=== PATIENT | female | born 1980 | race American Indian/Alaskan Native ===

== ENCOUNTER 2017-10-09 13:52 | Emergency (ER) | payer MEDICAID ==
[2017-10-09 14:06] VITALS: BP 137/90
--- NOTE | 2017-10-09 14:30 | EDM.PDOC ---
ED HPI GENERAL MEDICAL PROBLEM - General Chief Complaint: Abdominal Pain Stated Complaint: SHARP PAINS IN STOMACH Time Seen by Provider: 10/09/17 14:25 Source of Information: Reports: Patient History Limitations: Reports: No Limitations - History of Present Illness INITIAL COMMENTS - FREE TEXT/NARRATIVE: This 37 yo female patient reports to the ED with lower abdominal pain and bloody discharge from her vagina. The patient reports she recently found out she was . This is the patient's 4th with 3 healthy children. The patient reports she had a large meal yesterday and went home. The patient reports she got sick last night and vomited. During the night, the patient reports that she noticed some clots coming from her vagina. The patient reports she is no longer bleeding, but is having some lower abdominal cramping and aching. The patient reports she was supposed to have a menstrual cycle on July 13, but did not (last normal menstrual cycle was in the end of May). Onset: Today Duration: Constant Location: Reports: Abdomen (right lower abdominal cramping with vaginal bleeding ) Quality: Reports: Dull Severity: Moderate Improves with: Reports: None Worsens with: Reports: None Associated Symptoms: Reports: No Other Symptoms Lower Abdominal Pain Score (Numeric/FACES): 8 - Related Data Allergies Allergy/AdvReac Type Severity Reaction Status Date / Time metoclopramide HCl Allergy Tremors Verified 10/09/17 14:11 [From Reglan] Sulfa (Sulfonamide Allergy Cannot Verified 10/09/17 14:11 Antibiotics) Remember tramadol Allergy Rash Verified 10/09/17 14:11 hydrocortisone cream Allergy Rash Uncoded 10/09/17 14:11 Home Meds: Home Meds Pnv No.122/Iron/Folic Acid [ Multi Tablet] 1 tab PO DAILY 10/09/17 [ History] Past Medical History - Past Health History Medical/Surgical History: Denies Medical/Surgical History HEENT History: Reports: None Cardiovascular History: Reports: None Respiratory History: Reports: None Gastrointestinal History: Reports: None Genitourinary History: Reports: None 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: , Other (See Below) Other OB/BYN History: hx Musculoskeletal History: Reports: None Neurological History: Reports: None Psychiatric History: Reports: None Endocrine/Metabolic History: Reports: None Hematologic History: Reports: None Immunologic History: Reports: None Oncologic (Cancer) History: Reports: None Dermatologic History: Reports: None - Infectious Disease History Infectious Disease History: Reports: Chicken Pox - Past Surgical History Head Surgeries/Procedures: Reports: None GI Surgical History: Reports: Cholecystectomy Female Surgical History: Reports: None Endocrine Surgical History: Reports: None Musculoskeletal Surgical History: Reports: None Social & Family History - Family History Family Medical History: Noncontributory - Tobacco Use Smoking Status *Q: Current Some Day Smoker Years of Tobacco use: 10 Packs/Tins Daily: 0.3 Used Tobacco, but Quit: No Month Tobacco Last Used: january Second Hand Smoke Exposure: Yes - Caffeine Use Caffeine Use: Reports: Tea, Other - Alcohol Use Days Per Week of Alcohol Use: 0 - Recreational Drug Use Recreational Drug Use: Yes Drug Use in Last 12 Months: Yes Recreational Drug Type: Reports: Marijuana/Hashish Recreational Drug Use Frequency: Socially Recreational Drug Last Use: december - Living Situation & Occupation Living situation: Reports: with Significant Other Occupation: Employed ED ROS GENERAL - Review of Systems Review Of Systems: ROS reveals no pertinent complaints other than HPI. ED EXAM, GI/ABD - Physical Exam Exam: See Below Exam Limited By: No Limitations General Appearance: Alert, WD/WN, Moderate Distress Eyes: Bilateral: Normal Appearance, EOMI Ears: Normal External Exam, Normal Canal, Hearing Grossly Normal, Normal TMs Nose: Normal Inspection, Normal Mucosa, No Blood Throat/Mouth: Normal Inspection, Normal Lips, Normal Teeth, Normal Gums, Normal Oropharynx, Normal Voice, No Airway Compromise Head: Atraumatic, Normocephalic Neck: Normal Inspection, Supple, Non-Tender, Full Range of Motion Respiratory/Chest: No Respiratory Distress, Lungs Clear, Normal Breath Sounds, No Accessory Muscle Use, Chest Non-Tender Cardiovascular: Normal Peripheral Pulses, Regular Rate, Rhythm, No Edema, No Gallop, No JVD, No Murmur, No Rub GI/Abdominal Exam: Normal Bowel Sounds, Soft, Tender (to palpation of the suprapubic area) (Female) Exam: Deferred Rectal (Female) Exam: Deferred Back Exam: Normal Inspection, Full Range of Motion, NT Extremities: Normal Inspection, Normal Range of Motion, Non-Tender, Normal Capillary Refill, No Pedal Edema Neurological: Alert, Oriented, CN II-XII Intact, Normal Cognition, Normal Gait, Normal Reflexes, No Motor/Sensory Deficits Psychiatric: Normal Affect, Normal Mood Skin Exam: Warm, Dry, Intact, Normal Color, No Rash Lymphatic: No Adenopathy Course - Vital Signs Last Recorded V/S: Last Vital Signs Temp 36.1 C 10/09/17 14:04 Pulse 88 10/09/17 14:04 Resp 16 10/09/17 14:04 BP 137/90 10/09/17 14:04 Pulse Ox 100 10/09/17 14:04 - Orders/Labs/Meds Orders: Active Orders 24 hr Category Date Time Status OB Ltd 1 or More Fetus [US] Urgent Exams 10/09/17 15:19 Taken OB Transvaginal [US] Urgent Exams 10/09/17 15:19 Taken Labs: Laboratory Tests 10/09/17 10/09/17 10/09/17 Range/Units 14:15 14:15 14:15 WBC (5.0-10.0) 10^3/uL RBC (4.2-5.4) 10^6/uL Hgb (12.0-16.0) g/dL Hct (37.0-47.0) % MCV (80-100) fL MCH (27.0-34.0) pg MCHC (33.0-35.0) g/dL Plt Count (150-450) 10^3/uL Neut % (Auto) (42.2-75.2) % Lymph % (Auto) (20.5-50.1) % Mccone % (Auto) (2-8) % Eos % (Auto) (1.0-3.0) % Baso % (Auto) (0.0-1.0) % Sodium (135-145) mmol/L Potassium (3.6-5.0) mmol/L Chloride (101-111) mmol/L Carbon Dioxide (21.0-31.0) mmol/L Anion Gap BUN (7-18) mg/dL Creatinine (0.6-1.3) mg/dL Est Cr Clr Drug Dosing mL/min Estimated GFR (MDRD) BUN/Creatinine Ratio Glucose (74-105) mg/dL Calcium (8.4-10.2) mg/dl Total Bilirubin (0.2-1.0) mg/dL AST (10-42) IU/L ALT (10-60) IU/L Alkaline Phosphatase (42-121) IU/L Total Protein (6.7-8.2) g/dl Albumin (3.2-5.5) g/dl Globulin Albumin/Globulin Ratio HCG, Quant (0-25) mIU/ml Beta HCG, Quant mIU/ml Urine Color Yellow (YELLOW) Urine Appearance Clear (CLEAR) Urine pH 7.0 (5.0-9.0) Ur Specific [place] 1.015 (1.005-1.030) Urine Protein Negative (NEGATIVE) Urine Glucose (UA) Negative (NEGATIVE) Urine Ketones Negative (NEGATIVE) Urine Occult Blood Negative (NEGATIVE) Urine Nitrite Negative (NEGATIVE) Urine Bilirubin Negative (NEGATIVE) Urine Urobilinogen 0.2 (0.2-1.0) mg/dL Ur Leukocyte Esterase Negative (NEGATIVE) Urine RBC 0-5 /HPF Urine WBC 0-5 (0-5/HPF) /HPF Ur Epithelial Cells Moderate H /HPF Urine Bacteria Few (0-FEW/HPF) /HPF Urine HCG, Qual Positive Urine Opiates Screen Negative (NEGATIVE) Ur Oxycodone Screen Negative (NEGATIVE) Urine Methadone Screen Negative (NEGATIVE) Ur Barbiturates Screen Negative (NEGATIVE) U Tricyclic Antidepress Negative (NEGATIVE) Ur Phencyclidine Scrn Negative (NEGATIVE) Ur Amphetamine Screen Negative (NEGATIVE) U Methamphetamines Scrn Negative (NEGATIVE) Urine MDMA Screen Negative (NEGATIVE) U Benzodiazepines Scrn Negative (NEGATIVE) Urine Cocaine Screen Negative (NEGATIVE) U Marijuana (THC) Screen Positive H (NEGATIVE) 10/09/17 10/09/17 10/09/17 Range/Units 14:23 14:23 14:23 WBC 6.5 (5.0-10.0) 10^3/uL RBC 4.29 (4.2-5.4) 10^6/uL Hgb 13.2 (12.0-16.0) g/dL Hct 39.6 (37.0-47.0) % MCV 92.3 (80-100) fL MCH 30.8 (27.0-34.0) pg MCHC 33.3 (33.0-35.0) g/dL Plt Count 329 D (150-450) 10^3/uL Neut % (Auto) 65.6 (42.2-75.2) % Lymph % (Auto) 23.6 (20.5-50.1) % Mccone % (Auto) 9.7 H (2-8) % Eos % (Auto) 0.8 L (1.0-3.0) % Baso % (Auto) 0.3 (0.0-1.0) % Sodium 138 (135-145) mmol/L Potassium 3.4 L (3.6-5.0) mmol/L Chloride 104 (101-111) mmol/L Carbon Dioxide 26.0 (21.0-31.0) mmol/L Anion Gap 11.4 BUN 8 (7-18) mg/dL Creatinine 0.6 (0.6-1.3) mg/dL Est Cr Clr Drug Dosing 117.76 mL/min Estimated GFR (MDRD) > 60 BUN/Creatinine Ratio 13.33 Glucose 92 (74-105) mg/dL Calcium 8.8 (8.4-10.2) mg/dl Total Bilirubin 0.6 (0.2-1.0) mg/dL AST 17 (10-42) IU/L ALT 20 (10-60) IU/L Alkaline Phosphatase 68 (42-121) IU/L Total Protein 7.0 (6.7-8.2) g/dl Albumin 4.3 (3.2-5.5) g/dl Globulin 2.7 Albumin/Globulin Ratio 1.59 HCG, Quant > 1371 H (0-25) mIU/ml Beta HCG, Quant 7244 mIU/ml Urine Color (YELLOW) Urine Appearance (CLEAR) Urine pH (5.0-9.0) Ur Specific [place] (1.005-1.030) Urine Protein (NEGATIVE) Urine Glucose (UA) (NEGATIVE) Urine Ketones (NEGATIVE) Urine Occult Blood (NEGATIVE) Urine Nitrite (NEGATIVE) Urine Bilirubin (NEGATIVE) Urine Urobilinogen (0.2-1.0) mg/dL Ur Leukocyte Esterase (NEGATIVE) Urine RBC /HPF Urine WBC (0-5/HPF) /HPF Ur Epithelial Cells /HPF Urine Bacteria (0-FEW/HPF) /HPF Urine HCG, Qual Urine Opiates Screen (NEGATIVE) Ur Oxycodone Screen (NEGATIVE) Urine Methadone Screen (NEGATIVE) Ur Barbiturates Screen (NEGATIVE) U Tricyclic Antidepress (NEGATIVE) Ur Phencyclidine Scrn (NEGATIVE) Ur Amphetamine Screen (NEGATIVE) U Methamphetamines Scrn (NEGATIVE) Urine MDMA Screen (NEGATIVE) U Benzodiazepines Scrn (NEGATIVE) Urine Cocaine Screen (NEGATIVE) U Marijuana (THC) Screen (NEGATIVE) Departure - Departure Time of Disposition: 16:47 Disposition: Home, Self-Care 01 Condition: Fair Clinical Impression: Intrauterine - Discharge Information Instructions: First Trimester of Forms: ED Department Discharge Care Plan Goals: The patient was advised of the examination, lab and ultrasound results during the visit. The patient was encouraged to continue to monitor for any additional changes. If the patient has any additional symptoms or concerns, the patient should follow-up with her primary care facility or return to the emergency department. - My Orders Last 24 Hours: My Active Orders 10/09/17 15:19 OB Ltd 1 or More Fetus [US] Urgent OB Transvaginal [US] Urgent - Assessment/Plan Last 24 Hours: My Active Orders 10/09/17 15:19 OB Ltd 1 or More Fetus [US] Urgent OB Transvaginal [US] Urgent
[2017-10-09 14:54] LABS: CHLORIDE,CL 104 mmol/L (101-111); SODIUM,NA 138 mmol/L (135-145)
== END 2017-10-09 16:53 | disposition home or self-care (01) ==
LOC: DL.ED 13:52
DX: O99.89 Other specified diseases and conditions complicating pregnancy, childbirth and the puerperium (principal); R10.32 Left lower quadrant pain; O99.330 Smoking (tobacco) complicating pregnancy, unspecified trimester; Z88.2 Allergy status to sulfonamides; Z88.5 Allergy status to narcotic agent; Z88.8 Allergy status to other drugs, medicaments and biological substances
CPT/HCPCS: 36415; 76815; 76817; 80053; 80305; 81001; 81025; 84702; 85025; 99283; 99284

== ENCOUNTER 2017-10-20 22:56 | Emergency (ER) | payer SELFPAY ==
[2017-10-20] MEDS ORDERED: Sodium Chloride 0.9% 1,000 ML IV ONE (23:42)
[2017-10-20] MEDS ORDERED: Ondansetron 4 MG/2 ML SDV IV ONE (23:42)
--- NOTE | 2017-10-20 23:49 | EDM.PDOC ---
ED HPI GENERAL MEDICAL PROBLEM - General Chief Complaint: Headache Stated Complaint: HEADACHE, VOMITING Time Seen by Provider: 10/20/17 23:40 Source of Information: Reports: Patient History Limitations: Reports: No Limitations - History of Present Illness INITIAL COMMENTS - FREE TEXT/NARRATIVE: This 37 yo female patient reports to the ED with nausea/vomiting, a headache and lower abdominal pain. The patient reports she has been nauseated throughout her entire , but has not gotten into her primary care facility for the nausea. The patient reports her headache started this morning. The patient reports she attempted to take Tylenol, but has vomited it up each time. The patient was seen in the ED on 10/09/17 for abdominal pain and vaginal bleeding. US revealed a normal intrauterine . 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 Left Lower Abdomen Pain Score (Numeric/FACES): 8 Headache Pain Score (Numeric/FACES): 9 - Related Data Allergies Allergy/AdvReac Type Severity Reaction Status Date / Time metoclopramide HCl Allergy Tremors Verified 10/09/17 14:11 [From Reglan] Sulfa (Sulfonamide Allergy Cannot Verified 10/09/17 14:11 Antibiotics) Remember tramadol Allergy Rash Verified 10/09/17 14:11 hydrocortisone cream Allergy Rash Uncoded 10/09/17 14:11 Home Meds: Home Meds Pnv No.122/Iron/Folic Acid [ Multi Tablet] 1 tab PO DAILY 10/09/17 [ History] Past Medical History - Past Health History Medical/Surgical History: Denies Medical/Surgical History HEENT History: Reports: None Cardiovascular History: Reports: None Respiratory History: Reports: None Gastrointestinal History: Reports: None Genitourinary History: Reports: None 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: , Other (See Below) Other OB/BYN History: hx Musculoskeletal History: Reports: None Neurological History: Reports: None Psychiatric History: Reports: None Endocrine/Metabolic History: Reports: None Hematologic History: Reports: None Immunologic History: Reports: None Oncologic (Cancer) History: Reports: None Dermatologic History: Reports: None - Infectious Disease History Infectious Disease History: Reports: Chicken Pox - Past Surgical History Head Surgeries/Procedures: Reports: None GI Surgical History: Reports: Cholecystectomy Female Surgical History: Reports: None Endocrine Surgical History: Reports: None Musculoskeletal Surgical History: Reports: None Social & Family History - Family History Family Medical History: Noncontributory - Tobacco Use Smoking Status *Q: Current Some Day Smoker Years of Tobacco use: 2 Packs/Tins Daily: 0.5 Used Tobacco, but Quit: No Month Tobacco Last Used: january Second Hand Smoke Exposure: Yes - Caffeine Use Caffeine Use: Reports: Coffee, Tea - Alcohol Use Days Per Week of Alcohol Use: 0 - Recreational Drug Use Recreational Drug Use: Yes Drug Use in Last 12 Months: Yes Recreational Drug Type: Reports: Marijuana/Hashish Recreational Drug Use Frequency: Not Used In Over 3 Months Recreational Drug Last Use: december - Living Situation & Occupation Living situation: Reports: with Significant Other Occupation: Employed ED ROS GENERAL - Review of Systems Review Of Systems: ROS reveals no pertinent complaints other than HPI. - Physical Exam Exam: See Below Exam Limited By: No Limitations General Appearance: Alert, WD/WN, Moderate Distress Eye Exam: Bilateral Eye: EOMI, Normal Inspection, PERRL Ears: Normal External Exam, Normal Canal, Hearing Grossly Normal, Normal TMs Nose: Normal Inspection, Normal Mucosa, No Blood Throat/Mouth: Normal Inspection, Normal Lips, Normal Teeth, Normal Gums, Normal Oropharynx, Normal Voice, No Airway Compromise Head Exam: Atraumatic, Normocephalic Neck: Normal Inspection, Supple, Non-Tender, Full Range of Motion Respiratory/Chest: No Respiratory Distress, Lungs Clear, Normal Breath Sounds, No Accessory Muscle Use, Chest Non-Tender Cardiovascular: Normal Peripheral Pulses, Regular Rate, Rhythm, No Edema, No Gallop, No JVD, No Murmur, No Rub GI/Abdominal: Normal Bowel Sounds, Soft, Non-Tender, No Organomegaly, No Distention, No Abnormal Bruit, No Mass (Female) Exam: Deferred Rectal (Female) Exam: Deferred Neuro Exam (Abbreviated): Alert, Oriented, CN II-XII Intact, Normal Cognition, Normal Gait, Normal Reflexes, No Motor/Sensory Deficits Back Exam: Normal Inspection, Full Range of Motion, NT Extremities: Normal Inspection, Normal Range of Motion, Non-Tender, No Pedal Edema, Normal Capillary Refill Psychiatric: Normal Affect, Normal Mood Skin Exam: Warm, Dry, Intact, Normal Color, No Rash Course - Vital Signs Last Recorded V/S: Last Vital Signs Temp 36.8 C 10/20/17 23:11 Pulse 80 10/20/17 23:11 Resp 16 10/20/17 23:11 BP 142/97 H 10/20/17 23:11 Pulse Ox 100 10/20/17 23:11 - Orders/Labs/Meds Orders: Active Orders 24 hr Category Date Time Status DRUG SCREEN URINE BIORAD [URCHEM] Stat Lab 10/20/17 23:44 Uncollected UA W/MICROSCOPIC [URIN] Stat Lab 10/20/17 23:44 Uncollected Labs: Laboratory Tests 10/20/17 10/20/17 10/20/17 Range/Units 23:48 23:48 23:48 WBC 8.5 (5.0-10.0) 10^3/uL RBC 3.80 L (4.2-5.4) 10^6/uL Hgb 11.7 L D (12.0-16.0) g/dL Hct 35.0 L (37.0-47.0) % MCV 92.1 (80-100) fL MCH 30.8 (27.0-34.0) pg MCHC 33.4 (33.0-35.0) g/dL Plt Count 255 (150-450) 10^3/uL Neut % (Auto) 60.9 (42.2-75.2) % Lymph % (Auto) 28.8 (20.5-50.1) % Baker % (Auto) 9.3 H (2-8) % Eos % (Auto) 0.8 L (1.0-3.0) % Baso % (Auto) 0.2 (0.0-1.0) % Sodium 137 (135-145) mmol/L Potassium 3.5 L (3.6-5.0) mmol/L Chloride 105 (101-111) mmol/L Carbon Dioxide 21.0 (21.0-31.0) mmol/L Anion Gap 14.5 BUN 10 (7-18) mg/dL Creatinine 0.5 L (0.6-1.3) mg/dL Est Cr Clr Drug Dosing TNP Estimated GFR (MDRD) > 60 BUN/Creatinine Ratio 20.00 Glucose 93 (74-105) mg/dL Calcium 8.4 (8.4-10.2) mg/dl Total Bilirubin 0.3 (0.2-1.0) mg/dL AST 21 (10-42) IU/L ALT 19 (10-60) IU/L Alkaline Phosphatase 58 (42-121) IU/L Total Protein 6.1 L (6.7-8.2) g/dl Albumin 3.6 (3.2-5.5) g/dl Globulin 2.5 Albumin/Globulin Ratio 1.44 HCG, Quant > 1371 H (0-25) mIU/ml Beta HCG, Quant 01555 mIU/ml Meds: Medications Discontinued Medications Generic Name Dose Route Start Last Admin Trade Name Jonelle PRN Reason Stop Dose Admin Acetaminophen 650 mg 10/21/17 00:31 10/21/17 00:46 Tylenol PO 10/21/17 00:32 650 mg NOW ONE Administration Sodium Chloride 1,000 mls @ 999 mls/hr 10/20/17 23:42 10/20/17 23:54 Normal Saline IV 10/21/17 00:42 999 mls/hr .BOLUS ONE Administration Ondansetron HCl 4 mg 10/20/17 23:42 10/20/17 23:54 Zofran IV 10/20/17 23:43 4 mg ONETIME ONE Administration Departure - Departure Time of Disposition: 00:57 Disposition: Home, Self-Care 01 Condition: Fair Clinical Impression: Headache Qualifiers: Headache type: tension-type Headache chronicity pattern: acute headache Intractability: intractable Qualified Code(s): G44.201 - Tension-type headache, unspecified, intractable Nausea & vomiting Qualifiers: Vomiting type: unspecified Vomiting Intractability: non-intractable Qualified Code(s): R11.2 - Nausea with vomiting, unspecified - Discharge Information Instructions: Tension Headache, [id number], Nausea, Adult, [id number] Forms: ED Department Discharge Care Plan Goals: The patient was advised of the examination and lab results during the visit. The patient was given a liter of IV fluid, IV Zofran and an oral dose of Tylenol while in the ED. The patient was encouraged to follow-up with her primary care facility for continued evaluation and further management. The patient was given a script for Zofran (4 mg) #20 to take 1 by mouth every 6 hours as needed for nausea. If the patient has any additional symptoms or concerns, the patient should follow-up with her primary care facility or return to the emergency department. - My Orders Last 24 Hours: My Active Orders 10/20/17 23:44 DRUG SCREEN URINE BIORAD [URCHEM] Stat UA W/MICROSCOPIC [URIN] Stat - Assessment/Plan Last 24 Hours: My Active Orders 10/20/17 23:44 DRUG SCREEN URINE BIORAD [URCHEM] Stat UA W/MICROSCOPIC [URIN] Stat
[2017-10-21 00:18] LABS: CHLORIDE,CL 105 mmol/L (101-111); SODIUM,NA 137 mmol/L (135-145)
[2017-10-21] MEDS ORDERED: Acetaminophen 325 MG Tab PO ONE (00:31)
[2017-10-21 01:10] VITALS: BP 142/91
== END 2017-10-21 01:12 | disposition home or self-care (01) ==
LOC: DL.ED 22:56
DX: O99.351 Diseases of the nervous system complicating pregnancy, first trimester (principal); G44.201 Tension-type headache, unspecified, intractable; R11.2 Nausea with vomiting, unspecified; O99.331 Smoking (tobacco) complicating pregnancy, first trimester; F17.210 Nicotine dependence, cigarettes, uncomplicated; Z88.2 Allergy status to sulfonamides; Z88.5 Allergy status to narcotic agent; Z88.8 Allergy status to other drugs, medicaments and biological substances
CPT/HCPCS: 36415; 80053; 80305; 81001; 84702; 85025; 96361; 96374; 99284; A9270; J2405; J7030; 99283

== ENCOUNTER 2017-10-26 18:27 | Emergency (ER) | payer MEDICAID ==
[2017-10-26 18:42] VITALS: BP 146/113
--- NOTE | 2017-10-26 19:59 | EDM.PDOC ---
ED HPI GENERAL MEDICAL PROBLEM - General Chief Complaint: Lower Extremity Injury/Pain Stated Complaint: LEFT KNEE INJURY, 3 MONTHS PG, [id number] Time Seen by Provider: 10/26/17 19:25 Source of Information: Reports: Patient, RN, RN Notes Reviewed History Limitations: Reports: No Limitations - History of Present Illness INITIAL COMMENTS - FREE TEXT/NARRATIVE: Pt presents to the ER with c/o left leg pain. She states she slipped on some ice behind her apartment about 4:30pm. She states she fell on the left knee, and states the pain is more above the knee. She rates the pain 9/10. She states she is 3 months . 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 Left Knee Pain Score (Numeric/FACES): 6 - Related Data Allergies Allergy/AdvReac Type Severity Reaction Status Date / Time metoclopramide HCl Allergy Tremors Verified 10/26/17 18:42 [From Reglan] Sulfa (Sulfonamide Allergy Cannot Verified 10/26/17 18:42 Antibiotics) Remember tramadol Allergy Rash Verified 10/26/17 18:42 hydrocortisone cream Allergy Rash Uncoded 10/26/17 18:42 Home Meds: Home Meds Pnv No.122/Iron/Folic Acid [ Multi Tablet] 1 tab PO DAILY 10/09/17 [ History] Past Medical History - Past Health History Medical/Surgical History: Denies Medical/Surgical History HEENT History: Reports: None Cardiovascular History: Reports: None Respiratory History: Reports: None Gastrointestinal History: Reports: None Genitourinary History: Reports: None 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: , 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 (See Below) Other OB/BYN History: hx Musculoskeletal History: Reports: None Neurological History: Reports: None Psychiatric History: Reports: None Endocrine/Metabolic History: Reports: None Hematologic History: Reports: None Immunologic History: Reports: None Oncologic (Cancer) History: Reports: None Dermatologic History: Reports: None - Infectious Disease History Infectious Disease History: Reports: Chicken Pox - Past Surgical History Head Surgeries/Procedures: Reports: None GI Surgical History: Reports: Cholecystectomy Female Surgical History: Reports: None Endocrine Surgical History: Reports: None Musculoskeletal Surgical History: Reports: None Social & Family History - Family History Family Medical History: Noncontributory - Tobacco Use Smoking Status *Q: Current Every Day Smoker Years of Tobacco use: 2 Packs/Tins Daily: 2 Used Tobacco, but Quit: No Month Tobacco Last Used: january Second Hand Smoke Exposure: Yes - Caffeine Use Caffeine Use: Reports: Soda - Alcohol Use Days Per Week of Alcohol Use: 0 - Recreational Drug Use Recreational Drug Use: Yes Drug Use in Last 12 Months: Yes Recreational Drug Type: Reports: Marijuana/Hashish Recreational Drug Use Frequency: Rarely Recreational Drug Last Use: december - Living Situation & Occupation Living situation: Reports: with Significant Other Occupation: Employed Review of Systems - Review of Systems Review Of Systems: ROS reveals no pertinent complaints other than HPI. ED EXAM, GENERAL - Physical Exam Exam: See Below Exam Limited By: No Limitations General Appearance: Alert, WD/WN, No Apparent Distress Eye Exam: Bilateral Eye: EOMI, Normal Inspection Ears: Normal External Exam, Hearing Grossly Normal Nose: Normal Inspection Throat/Mouth: Normal Inspection, Normal Voice, No Airway Compromise Head: Atraumatic, Normocephalic Neck: Normal Inspection, Supple, Non-Tender, Full Range of Motion Respiratory/Chest: No Respiratory Distress, Lungs Clear, Normal Breath Sounds, No Accessory Muscle Use, Chest Non-Tender Cardiovascular: Normal Peripheral Pulses, Regular Rate, Rhythm, No Edema, No Gallop, No JVD, No Murmur, No Rub Peripheral Pulses: 2+: Radial (L), Radial (R), Dorsalis Pedis (L), Dorsalis Pedis (R) GI/Abdominal: Normal Bowel Sounds, Soft, Non-Tender, No Organomegaly, No Distention, No Abnormal Bruit, No Mass (Female) Exam: Deferred Rectal (Female) Exam: Deferred Back Exam: Normal Inspection, Full Range of Motion, NT Extremities: Normal Inspection, Non-Tender, No Pedal Edema, Normal Capillary Refill, Joint Swelling (left knee), Limited Range of Motion (left knee) Neurological: Alert, Oriented, CN II-XII Intact, Normal Cognition, Normal Gait, Normal Reflexes, No Motor/Sensory Deficits Psychiatric: Normal Affect, Normal Mood Skin Exam: Warm, Dry, Intact, Normal Color, No Rash Lymphatic: No Adenopathy Course - Vital Signs Last Recorded V/S: Last Vital Signs Temp 98.2 F 10/26/17 18:33 Pulse 101 H 10/26/17 18:33 Resp 21 H 10/26/17 18:33 BP 146/113 H 10/26/17 18:33 Pulse Ox 100 10/26/17 18:33 - Radiology Interpretation Free Text/Narrative:: Left knee xray: No acute findings See rad report Departure - Departure Time of Disposition: 20:32 Disposition: Home, Self-Care 01 Condition: Fair Clinical Impression: Contusion of knee - Discharge Information Instructions: Contusion, [id number], Knee Immobilizer, [id number] Forms: ED Department Discharge Additional Instructions: Use Knee immobilizer until pain is improved. May use Tylenol for pain Rest, ice the area as tolerated. Elevate as able. Follow up with your primary care facility if no improvement.
== END 2017-10-26 20:43 | disposition home or self-care (01) ==
LOC: DL.ED 18:27
DX: O9A.211 Injury, poisoning and certain other consequences of external causes complicating pregnancy, first trimester (principal); S80.02XA Contusion of left knee, initial encounter; O99.331 Smoking (tobacco) complicating pregnancy, first trimester; F17.210 Nicotine dependence, cigarettes, uncomplicated; Z88.2 Allergy status to sulfonamides; Z88.8 Allergy status to other drugs, medicaments and biological substances; Z88.5 Allergy status to narcotic agent; W00.2XXA Other fall from one level to another due to ice and snow, initial encounter
CPT/HCPCS: 73562-LT; 99283; 99284

== ENCOUNTER 2017-11-06 11:37 | Emergency (ER) | payer SELFPAY ==
[2017-11-06 11:44] VITALS: BP 143/99
--- NOTE | 2017-11-06 12:01 | EDM.PDOC ---
ED HPI GENERAL MEDICAL PROBLEM - General Chief Complaint: ENT Problem Stated Complaint: SEVERE TOOTH PAIN, [id number] Time Seen by Provider: 11/06/17 12:00 Source of Information: Reports: Patient, Old Records, RN, RN Notes Reviewed History Limitations: Reports: No Limitations - History of Present Illness INITIAL COMMENTS - FREE TEXT/NARRATIVE: Pt states she is approx. 9 weeks , and has no concerns with her , but has had several days of worsening Rt upper tooth pain at the molar region. Today pt noted that her gums are swelling on the upper Rt molar and she feels she is developing a dental abscess. Also pt c/o a painful red swollen abscess on the Rt hip. She report a small "ball" under the skin at that location for a year or more, and once some foul smelling greasy white material came out of it. Three days ago it began to get red and painful. Denies fever or chills. Onset: Gradual Duration: Constant, Getting Worse Location: Reports: Lower Extremity, Right (Rt hip), Other (mouth) Quality: Reports: Ache, Throbbing Severity: Severe Improves with: Reports: None Worsens with: Reports: None Associated Symptoms: Reports: No Other Symptoms Right Upper Gums Pain Score (Numeric/FACES): 10 - Related Data Allergies Allergy/AdvReac Type Severity Reaction Status Date / Time metoclopramide HCl Allergy Tremors Verified 10/26/17 18:42 [From Reglan] Sulfa (Sulfonamide Allergy Cannot Verified 10/26/17 18:42 Antibiotics) Remember tramadol Allergy Rash Verified 10/26/17 18:42 hydrocortisone cream Allergy Rash Uncoded 10/26/17 18:42 Home Meds: Home Meds Pnv No.122/Iron/Folic Acid [ Multi Tablet] 1 tab PO DAILY 10/09/17 [ History] Labetalol HCl [Labetalol] 1 tab PO DAILY 11/06/17 [History] Past Medical History - Past Health History Medical/Surgical History: Denies Medical/Surgical History HEENT History: Reports: None Cardiovascular History: Reports: None Respiratory History: Reports: None Gastrointestinal History: Reports: None Genitourinary History: Reports: None [employer] History: Reports: , 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 11/06/2017 states 9 weeks Musculoskeletal History: Reports: None Neurological History: Reports: None Psychiatric History: Reports: None Endocrine/Metabolic History: Reports: None Hematologic History: Reports: None Immunologic History: Reports: None Oncologic (Cancer) History: Reports: None Dermatologic History: Reports: None - Infectious Disease History Infectious Disease History: Reports: Chicken Pox - Past Surgical History Head Surgeries/Procedures: Reports: None GI Surgical History: Reports: Cholecystectomy Female Surgical History: Reports: None Endocrine Surgical History: Reports: None Musculoskeletal Surgical History: Reports: None Social & Family History - Family History Family Medical History: Noncontributory - Tobacco Use Smoking Status *Q: Current Every Day Smoker Years of Tobacco use: 2 Packs/Tins Daily: 0.2 Used Tobacco, but Quit: No Month Tobacco Last Used: january Second Hand Smoke Exposure: Yes - Caffeine Use Caffeine Use: Reports: Soda - Alcohol Use Days Per Week of Alcohol Use: 0 - Recreational Drug Use Recreational Drug Use: Yes Drug Use in Last 12 Months: Yes Recreational Drug Type: Reports: Marijuana/Hashish Recreational Drug Use Frequency: Rarely Recreational Drug Last Use: december - Living Situation & Occupation Living situation: Reports: with Significant Other Occupation: Employed ED ROS ENT - Review of Systems Review Of Systems: ROS reveals no pertinent complaints other than HPI. ED EXAM, ENT - Physical Exam Exam: See Below Exam Limited By: No Limitations General Appearance: Alert, WD/WN, No Apparent Distress Eye Exam: Bilateral Eye: Normal Inspection Ears: Normal External Exam, Normal Canal, Hearing Grossly Normal, Normal TMs Nose: Normal Inspection Mouth/Throat: Normal Lips, Normal Oropharynx, Dental Abcess (Rt maxillary molar region), Dental Pain, Dental Tenderness, Gum Swelling Head: Atraumatic, Normocephalic Neck: Normal Inspection Respiratory/Chest: No Respiratory Distress, Lungs Clear Cardiovascular: Regular Rate, Rhythm Extremities: Normal Range of Motion, Normal Capillary Refill, Increased Warmth ( Rt latertal hip with 3cm diameter swollen acutely tender, erythematous skin abscess, no drainage) Neurological: Alert, Oriented, CN II-XII Intact, Normal Cognition, Normal Gait, Normal Reflexes, No Motor/Sensory Deficits Psychiatric: Normal Affect, Normal Mood Lymphatic: No Adenopathy ED I&D PROCEDURES - I&D Site: Rt lateral hip Skin prep: Chlorhexidine (Hibiciens), Saline Local anesthesia - Lidocaine (Xylocaine): 1% Plain Local Anesthetic Volume: Other (10cc) Area Incised With: 11 Blade Drainage: Purulent, Moderate Amount, Other (sebaceous material and cyst sac) Probed to Break Up Loculations: Yes Packed With: 1/4 in. Iodoform Sterile Dressinx4(s) Complications: No Course - Vital Signs Last Recorded V/S: Last Vital Signs Temp 36.1 C 11/06/17 11:43 Pulse 79 11/06/17 11:43 Resp 20 11/06/17 11:43 BP 143/99 H 11/06/17 11:43 Pulse Ox 100 11/06/17 11:43 - Orders/Labs/Meds Orders: Active Orders 24 hr Category Date Time Status Bupivacaine 0.5% [Sensorcaine-MPF 0.5%] Med 11/06/17 12:53 Once 10 ml INJECT ONETIME ONE Meds: Medications Discontinued Medications Generic Name Dose Route Start Last Admin Trade Name Freq PRN Reason Stop Dose Admin Acetaminophen 650 mg 11/06/17 12:08 11/06/17 12:14 Tylenol PO 11/06/17 12:09 650 mg NOW ONE Administration Cephalexin 500 mg 11/06/17 12:07 11/06/17 12:13 Keflex PO 11/06/17 12:08 500 mg ONETIME ONE Administration Clindamycin HCl 300 mg 11/06/17 12:08 11/06/17 12:13 Cleocin PO 11/06/17 12:09 300 mg ONETIME ONE Administration Lidocaine HCl 30 ml 11/06/17 12:07 11/06/17 12:13 Xylocaine-Mpf 1% INJECT 11/06/17 12:08 30 ml ONETIME ONE Administration Lidocaine HCl 15 ml 11/06/17 12:07 11/06/17 12:13 Xylocaine 2% Viscous PO 11/06/17 12:08 15 ml ONETIME ONE Administration - Re-Assessments/Exams Free Text/Narrative Re-Assessment/Exam: 11/06/17 13:03 Dental block: Marcaine 0.5% 4mls regional dental block to rt. maxillary quadrant. Departure - Departure Time of Disposition: 13:04 Disposition: Home, Self-Care 01 Condition: Good Clinical Impression: Dental abscess, Toothache, Epidermal inclusion cyst, Infected sebaceous cyst - Discharge Information Instructions: Dental Abscess, [id number], Incision and Drainage, Care After Forms: ED Department Discharge Additional Instructions: Rx: Cephalexin 500mg Rx: Clindamycin 300mg Follow up with dentist at first available appointment. Follow up in clinic for recheck of skin abscess next week. - My Orders Last 24 Hours: My Active Orders 11/06/17 12:53 Bupivacaine 0.5% [Sensorcaine-MPF 0.5%] 10 ml INJECT ONETIME ONE - Assessment/Plan Last 24 Hours: My Active Orders 11/06/17 12:53 Bupivacaine 0.5% [Sensorcaine-MPF 0.5%] 10 ml INJECT ONETIME ONE
[2017-11-06] MEDS ORDERED: Lidocaine 1% 30 ML SDV INJECT ONE (12:07)
[2017-11-06] MEDS ORDERED: Lidocaine 2% Viscous Solution 15 ML Cup PO ONE (12:07)
[2017-11-06] MEDS ORDERED: Cephalexin 500 MG Cap PO ONE (12:07)
[2017-11-06] MEDS ORDERED: Acetaminophen 325 MG Tab PO ONE (12:08)
[2017-11-06] MEDS ORDERED: Clindamycin HCl 150 MG Cap PO ONE (12:08)
[2017-11-06] MEDS ORDERED: Bupivacaine 0.5% 10 ML SDV INJECT ONE (12:53)
== END 2017-11-06 13:36 | disposition home or self-care (01) ==
LOC: DL.ED 11:37
DX: O99.611 Diseases of the digestive system complicating pregnancy, first trimester (principal); K04.7 Periapical abscess without sinus; O99.711 Diseases of the skin and subcutaneous tissue complicating pregnancy, first trimester; L72.3 Sebaceous cyst; O99.331 Smoking (tobacco) complicating pregnancy, first trimester; F17.210 Nicotine dependence, cigarettes, uncomplicated; Z79.899 Other long term (current) drug therapy; Z88.5 Allergy status to narcotic agent; Z88.2 Allergy status to sulfonamides; Z88.8 Allergy status to other drugs, medicaments and biological substances; Z3A.09 9 weeks gestation of pregnancy
CPT/HCPCS: 10061; 64400; 87070; 99283; A9270; 10060

== ENCOUNTER 2017-11-30 07:09 | Emergency (ER) | payer SELFPAY ==
[2017-11-30] MEDS ORDERED: Ondansetron 4 MG/2 ML SDV IV ONE (07:11)
[2017-11-30] MEDS ORDERED: Sodium Chloride 0.9% 1,000 ML IV ONE (07:11)
[2017-11-30] MEDS ORDERED: Pantoprazole 40 MG Vial IVPUSH ONE (07:11)
[2017-11-30 07:48] VITALS: BP 140/82
[2017-11-30 07:49] LABS: ACETAMINOPHEN < 10
[2017-11-30 07:51] LABS: CHLORIDE,CL 106 mmol/L (101-111); SODIUM,NA 137 mmol/L (135-145)
--- NOTE | 2017-11-30 07:51 | EDM.PDOC ---
ED HPI GENERAL MEDICAL PROBLEM - General Stated Complaint: [id number] THROWING UP BLOOD Time Seen by Provider: 11/30/17 07:40 Source of Information: Reports: Patient History Limitations: Reports: No Limitations - History of Present Illness INITIAL COMMENTS - FREE TEXT/NARRATIVE: This 37 yo female patient reports to the ED due to throwing up blood. The patient reports she is approximately 14-15 weeks into her current . The patient reports the nausea and vomiting started at about 0400 this morning with the last episode involving throwing up a "mouth full of blood". The patient reports she has not been nauseated through this and has not had nausea with the previous 4 pregnancies. The patient reports she is scheduled for her 1st appointment on December 22 with Tammy Bird. The patient denies any fevers or chills. Onset: Today Onset Date: 11/30/17 Onset Time: 04:00 Duration: Waxing/Waning Location: Reports: Abdomen (lower abdominal pain ) Quality: Reports: Ache, Sharp Severity: Moderate Improves with: Reports: None Worsens with: Reports: None Context: Reports: Other Associated Symptoms: Reports: Nausea/Vomiting Left Lower Abdominal Pain Score (Numeric/FACES): 6 - Related Data Allergies Allergy/AdvReac Type Severity Reaction Status Date / Time metoclopramide HCl Allergy Tremors Verified 11/30/17 07:26 [From Reglan] Sulfa (Sulfonamide Allergy Cannot Verified 11/30/17 07:26 Antibiotics) Remember tramadol Allergy Rash Verified 11/30/17 07:26 hydrocortisone cream Allergy Rash Uncoded 10/26/17 18:42 Home Meds: Home Meds Pnv No.122/Iron/Folic Acid [ Multi Tablet] 1 tab PO DAILY 10/09/17 [ History] Labetalol HCl [Labetalol] 1 tab PO DAILY 11/06/17 [History] Past Medical History - Past Health History Medical/Surgical History: Denies Medical/Surgical History HEENT History: Reports: None Cardiovascular History: Reports: Hypertension Respiratory History: Reports: None Gastrointestinal History: Reports: None Genitourinary History: Reports: None [employer]OR [employer]ING History: Reports: , 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 11/06/2017 states 9 weeks Musculoskeletal History: Reports: None Neurological History: Reports: None Psychiatric History: Reports: None Endocrine/Metabolic History: Reports: None Hematologic History: Reports: None Immunologic History: Reports: None Oncologic (Cancer) History: Reports: None Dermatologic History: Reports: None - Infectious Disease History Infectious Disease History: Reports: Chicken Pox - Past Surgical History Head Surgeries/Procedures: Reports: None GI Surgical History: Reports: Cholecystectomy Female Surgical History: Reports: None Endocrine Surgical History: Reports: None Musculoskeletal Surgical History: Reports: None Social & Family History - Family History Family Medical History: Noncontributory - Tobacco Use Smoking Status *Q: Former Smoker Years of Tobacco use: 2 Packs/Tins Daily: 0.2 Used Tobacco, but Quit: Yes Month Tobacco Last Used: january Second Hand Smoke Exposure: Yes - Caffeine Use Caffeine Use: Reports: Soda - Alcohol Use Days Per Week of Alcohol Use: 0 - Recreational Drug Use Recreational Drug Use: No Drug Use in Last 12 Months: Yes Recreational Drug Type: Reports: Marijuana/Hashish Recreational Drug Use Frequency: Rarely Recreational Drug Last Use: december - Living Situation & Occupation Living situation: Reports: with Significant Other Occupation: Employed ED ROS GENERAL - Review of Systems Review Of Systems: ROS reveals no pertinent complaints other than HPI. ED EXAM, GENERAL - Physical Exam Exam: See Below Exam Limited By: No Limitations General Appearance: Alert, WD/WN, Moderate Distress Eye Exam: Bilateral Eye: EOMI, Normal Inspection, PERRL Ears: Normal External Exam, Normal Canal, Hearing Grossly Normal, Normal TMs Nose: Normal Inspection, Normal Mucosa, No Blood Throat/Mouth: Normal Inspection, Normal Lips, Normal Teeth, Normal Gums, Normal Oropharynx, Normal Voice, No Airway Compromise Head: Atraumatic, Normocephalic Neck: Normal Inspection, Supple, Non-Tender, Full Range of Motion Respiratory/Chest: No Respiratory Distress, Lungs Clear, Normal Breath Sounds, No Accessory Muscle Use, Chest Non-Tender Cardiovascular: Normal Peripheral Pulses, Regular Rate, Rhythm, No Edema, No Gallop, No JVD, No Murmur, No Rub GI/Abdominal: Normal Bowel Sounds, Soft, No Organomegaly, No Distention, No Abnormal Bruit, No Mass, Pelvis Stable, Tender (lower abdomen) (Female) Exam: Deferred Rectal (Female) Exam: Deferred Back Exam: Normal Inspection, Full Range of Motion, NT Extremities: Normal Inspection, Normal Range of Motion, Non-Tender, Normal Capillary Refill, No Pedal Edema Neurological: Alert, Oriented, CN II-XII Intact, Normal Cognition, Normal Gait, Normal Reflexes, No Motor/Sensory Deficits Psychiatric: Normal Affect, Normal Mood Skin Exam: Warm, Dry, Intact, Normal Color, No Rash Lymphatic: No Adenopathy Course - Vital Signs Last Recorded V/S: Last Vital Signs Temp 36.0 C 11/30/17 07:15 Pulse 92 11/30/17 07:15 Resp 16 11/30/17 07:15 BP 140/82 11/30/17 07:15 Pulse Ox 100 11/30/17 07:15 - Orders/Labs/Meds Orders: Active Orders 24 hr Category Date Time Status Sodium Chloride 0.9% [Normal Saline] 1,000 ml Med 11/30/17 08:45 Active IV ASDIRECTED Medication Orders Sodium Chloride (Normal Saline) 1,000 mls @ 250 mls/hr IV ASDIRECTED CHELLY Last Admin: 11/30/17 08:35 Dose: 250 mls/hr Labs: Laboratory Tests 11/30/17 11/30/17 11/30/17 Range/Units 07:23 07:23 07:23 WBC 7.5 (5.0-10.0) 10^3/uL RBC 3.77 L (4.2-5.4) 10^6/uL Hgb 11.8 L (12.0-16.0) g/dL Hct 34.2 L (37.0-47.0) % MCV 90.7 (80-100) fL MCH 31.3 (27.0-34.0) pg MCHC 34.5 (33.0-35.0) g/dL Plt Count 243 (150-450) 10^3/uL Neut % (Auto) 68.1 (42.2-75.2) % Lymph % (Auto) 21.3 (20.5-50.1) % Eddy % (Auto) 9.1 H (2-8) % Eos % (Auto) 1.2 (1.0-3.0) % Baso % (Auto) 0.3 (0.0-1.0) % Sodium 137 (135-145) mmol/L Potassium 3.5 L (3.6-5.0) mmol/L Chloride 106 (101-111) mmol/L Carbon Dioxide 24.0 (21.0-31.0) mmol/L Anion Gap 10.5 BUN 5 L (7-18) mg/dL Creatinine 0.5 L (0.6-1.3) mg/dL Est Cr Clr Drug Dosing 141.31 mL/min Estimated GFR (MDRD) > 60 BUN/Creatinine Ratio 10.00 Glucose 109 H (74-105) mg/dL Calcium 8.4 (8.4-10.2) mg/dl Magnesium 1.9 (1.8-2.5) mg/dL Total Bilirubin 0.2 (0.2-1.0) mg/dL AST 22 (10-42) IU/L ALT 13 (10-60) IU/L Alkaline Phosphatase 43 (42-121) IU/L Total Protein 6.3 L (6.7-8.2) g/dl Albumin 3.5 (3.2-5.5) g/dl Globulin 2.8 Albumin/Globulin Ratio 1.25 Amylase 53 (28-100) U/L Lipase 22 (22-51) U/L HCG, Quant (0-25) mIU/ml Beta HCG, Quant mIU/ml Urine Color (YELLOW) Urine Appearance (CLEAR) Urine pH (5.0-9.0) Ur Specific [place] (1.005-1.030) Urine Protein (NEGATIVE) Urine Glucose (UA) (NEGATIVE) Urine Ketones (NEGATIVE) Urine Occult Blood (NEGATIVE) Urine Nitrite (NEGATIVE) Urine Bilirubin (NEGATIVE) Urine Urobilinogen (0.2-1.0) mg/dL Ur Leukocyte Esterase (NEGATIVE) Urine RBC /HPF Urine WBC (0-5/HPF) /HPF Ur Epithelial Cells /HPF Amorphous Sediment (0/HPF) /HPF Urine Bacteria (0-FEW/HPF) /HPF Urine Mucus /LPF Urine Opiates Screen (NEGATIVE) Ur Oxycodone Screen (NEGATIVE) Urine Methadone Screen (NEGATIVE) Acetaminophen < 10 Ur Barbiturates Screen (NEGATIVE) U Tricyclic Antidepress (NEGATIVE) Ur Phencyclidine Scrn (NEGATIVE) Ur Amphetamine Screen (NEGATIVE) U Methamphetamines Scrn (NEGATIVE) Urine MDMA Screen (NEGATIVE) U Benzodiazepines Scrn (NEGATIVE) Urine Cocaine Screen (NEGATIVE) U Marijuana (THC) Screen (NEGATIVE) Ethyl Alcohol < 5 mg/dL 11/30/17 11/30/17 11/30/17 Range/Units 07:23 09:40 09:40 WBC (5.0-10.0) 10^3/uL RBC (4.2-5.4) 10^6/uL Hgb (12.0-16.0) g/dL Hct (37.0-47.0) % MCV (80-100) fL MCH (27.0-34.0) pg MCHC (33.0-35.0) g/dL Plt Count (150-450) 10^3/uL Neut % (Auto) (42.2-75.2) % Lymph % (Auto) (20.5-50.1) % Eddy % (Auto) (2-8) % Eos % (Auto) (1.0-3.0) % Baso % (Auto) (0.0-1.0) % Sodium (135-145) mmol/L Potassium (3.6-5.0) mmol/L Chloride (101-111) mmol/L Carbon Dioxide (21.0-31.0) mmol/L Anion Gap BUN (7-18) mg/dL Creatinine (0.6-1.3) mg/dL Est Cr Clr Drug Dosing mL/min Estimated GFR (MDRD) BUN/Creatinine Ratio Glucose (74-105) mg/dL Calcium (8.4-10.2) mg/dl Magnesium (1.8-2.5) mg/dL Total Bilirubin (0.2-1.0) mg/dL AST (10-42) IU/L ALT (10-60) IU/L Alkaline Phosphatase (42-121) IU/L Total Protein (6.7-8.2) g/dl Albumin (3.2-5.5) g/dl Globulin Albumin/Globulin Ratio Amylase (28-100) U/L Lipase (22-51) U/L HCG, Quant > 1371 H (0-25) mIU/ml Beta HCG, Quant 02822 mIU/ml Urine Color Yellow (YELLOW) Urine Appearance Cloudy (CLEAR) Urine pH 7.5 (5.0-9.0) Ur Specific [place] 1.020 (1.005-1.030) Urine Protein Negative (NEGATIVE) Urine Glucose (UA) Negative (NEGATIVE) Urine Ketones Negative (NEGATIVE) Urine Occult Blood Negative (NEGATIVE) Urine Nitrite Negative (NEGATIVE) Urine Bilirubin Negative (NEGATIVE) Urine Urobilinogen 0.2 (0.2-1.0) mg/dL Ur Leukocyte Esterase Negative (NEGATIVE) Urine RBC Not seen /HPF Urine WBC 0-5 (0-5/HPF) /HPF Ur Epithelial Cells Rare /HPF Amorphous Sediment Many H (0/HPF) /HPF Urine Bacteria Not seen (0-FEW/HPF) /HPF Urine Mucus Rare /LPF Urine Opiates Screen Negative (NEGATIVE) Ur Oxycodone Screen Negative (NEGATIVE) Urine Methadone Screen Negative (NEGATIVE) Acetaminophen Ur Barbiturates Screen Negative (NEGATIVE) U Tricyclic Antidepress Negative (NEGATIVE) Ur Phencyclidine Scrn Negative (NEGATIVE) Ur Amphetamine Screen Negative (NEGATIVE) U Methamphetamines Scrn Negative (NEGATIVE) Urine MDMA Screen Negative (NEGATIVE) U Benzodiazepines Scrn Negative (NEGATIVE) Urine Cocaine Screen Negative (NEGATIVE) U Marijuana (THC) Screen Positive H (NEGATIVE) Ethyl Alcohol mg/dL Meds: Medications Generic Name Dose Route Start Last Admin Trade Name Freq PRN Reason Stop Dose Admin Sodium Chloride 1,000 mls @ 250 mls/hr 11/30/17 08:45 11/30/17 08:35 Normal Saline IV 250 mls/hr ASDIRECTED CHELLY Administration Discontinued Medications Generic Name Dose Route Start Last Admin Trade Name Freq PRN Reason Stop Dose Admin Sodium Chloride 1,000 mls @ 999 mls/hr 11/30/17 07:11 11/30/17 07:35 Normal Saline IV 11/30/17 08:11 999 mls/hr .BOLUS ONE Administration Ondansetron HCl 4 mg 11/30/17 07:11 11/30/17 07:35 Zofran IV 11/30/17 07:12 4 mg ONETIME ONE Administration Pantoprazole Sodium 80 mg 11/30/17 07:11 11/30/17 07:35 Protonix Iv IVPUSH 11/30/17 07:12 80 mg .BOLUS ONE Administration Departure - Departure Time of Disposition: 10:44 Disposition: Home, Self-Care 01 Condition: Fair Clinical Impression: Round ligament pain, Nausea and vomiting during - Discharge Information Instructions: Nausea and Vomiting, Adult, [id number], Round Ligament Pain Forms: ED Department Discharge Care Plan Goals: The patient was advised of the examination, lab and ultrasound results during the visit. The patient was encouraged to stick to a bland diet and avoid red fluids or foods. The patient was given an IV dose of Zofran and an IV dose of Protonix while in the ED. The patient was encourage to follow-up with her primary care facility for continued evaluation and treatment. If he patient has any additional symptoms or concerns, the patient should visit her primary care facility or return to the emergency department. - My Orders Last 24 Hours: My Active Orders 11/30/17 08:45 Sodium Chloride 0.9% [Normal Saline] 1,000 ml IV ASDIRECTED - Assessment/Plan Last 24 Hours: My Active Orders 11/30/17 08:45 Sodium Chloride 0.9% [Normal Saline] 1,000 ml IV ASDIRECTED
[2017-11-30] MEDS ORDERED: Sodium Chloride 0.9% 1,000 ML IV SCH (08:45)
--- NOTE | 2017-11-30 10:38 | US ---
Clinical history: 37-year-old gravid 4 Para 3 Female uncertain LMP (hCG 79,700) with lower abdominal pain. Interpretation: Midline uterus is enlarged with a clearly demonstrated live ( heart rate 143 bpm ) intrauterine gestation transverse lie ( head on the left). Satisfactory amniotic fluid volume for first trimester gestation and healthy appearing placenta locat ed posteriorly corpus of the uterus extending into the lower uterine segment with the leading edge on ly 9 mm from the internal cervical os. No retrosternal hematoma. Forreston-rump length measurements 6.53 cm approximates a 13 week 0 day gestation.
== END 2017-11-30 10:50 | disposition home or self-care (01) ==
LOC: DL.ED 07:09
DX: O21.9 Vomiting of pregnancy, unspecified (principal); O99.89 Other specified diseases and conditions complicating pregnancy, childbirth and the puerperium; R10.2 Pelvic and perineal pain; O10.911 Unspecified pre-existing hypertension complicating pregnancy, first trimester; Z87.891 Personal history of nicotine dependence; Z79.899 Other long term (current) drug therapy; Z88.2 Allergy status to sulfonamides; Z88.5 Allergy status to narcotic agent; Z88.8 Allergy status to other drugs, medicaments and biological substances; Z3A.13 13 weeks gestation of pregnancy
CPT/HCPCS: 36415; 76801; 80053; 80305; 81001; 82150; 83690; 83735; 84702; 85025; 96361; 96374; 96375; 99284; C9113; G0480; J2405; J7030

== ENCOUNTER 2017-12-23 16:50 | Emergency (ER) | payer SELFPAY ==
[2017-12-23 17:20] VITALS: BP 141/94
--- NOTE | 2017-12-23 17:57 | EDM.PDOC ---
Scribed by Sana Ayala 12/23/17 2731 for Tye Frank MD ED HPI GENERAL MEDICAL PROBLEM - General Chief Complaint: ENT Problem Stated Complaint: TOOTH HURTS [id number] Time Seen by Provider: 12/23/17 17:36 Source of Information: Reports: Patient, RN, RN Notes Reviewed History Limitations: Reports: No Limitations - History of Present Illness INITIAL COMMENTS - FREE TEXT/NARRATIVE: Patient presents with complaint of severe tootache right upper molar. Patient was started on Clindamycin by her doctor. Dentist will not see her because she is 18 weeks . Duration: Getting Worse Location: Reports: Other (toothache) Quality: Reports: Ache Severity: Severe Improves with: Reports: None Worsens with: Reports: None Associated Symptoms: Reports: No Other Symptoms Right Tooth/Teeth Pain Score (Numeric/FACES): 9 - Related Data Allergies Allergy/AdvReac Type Severity Reaction Status Date / Time metoclopramide HCl Allergy Tremors Verified 12/23/17 16:56 [From Reglan] Sulfa (Sulfonamide Allergy Cannot Verified 12/23/17 16:56 Antibiotics) Remember tramadol Allergy Rash Verified 12/23/17 16:56 hydrocortisone cream Allergy Rash Uncoded 10/26/17 18:42 Home Meds: Home Meds Pnv No.122/Iron/Folic Acid [ Multi Tablet] 1 tab PO DAILY 10/09/17 [ History] Past Medical History - Past Health History Medical/Surgical History: Denies Medical/Surgical History HEENT History: Reports: None Other HEENT History: dental infection Cardiovascular History: Reports: Hypertension Respiratory History: Reports: None Gastrointestinal History: Reports: None Genitourinary History: Reports: None PROFESSIONAL [employer] History: Reports: , 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 currently Musculoskeletal History: Reports: None Neurological History: Reports: None Psychiatric History: Reports: None Endocrine/Metabolic History: Reports: None Hematologic History: Reports: None Immunologic History: Reports: None Oncologic (Cancer) History: Reports: None Dermatologic History: Reports: None - Infectious Disease History Infectious Disease History: Reports: Chicken Pox - Past Surgical History Head Surgeries/Procedures: Reports: None GI Surgical History: Reports: Cholecystectomy Female Surgical History: Reports: None Endocrine Surgical History: Reports: None Musculoskeletal Surgical History: Reports: None Social & Family History - Family History Family Medical History: Noncontributory - Tobacco Use Smoking Status *Q: Former Smoker Years of Tobacco use: 2 Packs/Tins Daily: 0.2 Used Tobacco, but Quit: Yes Month Tobacco Last Used: August Second Hand Smoke Exposure: Yes - Caffeine Use Caffeine Use: Reports: Tea - Alcohol Use Days Per Week of Alcohol Use: 0 - Recreational Drug Use Recreational Drug Use: No Drug Use in Last 12 Months: Yes Recreational Drug Type: Reports: Marijuana/Hashish Recreational Drug Use Frequency: Rarely Recreational Drug Last Use: december - Living Situation & Occupation Living situation: Reports: with Significant Other Occupation: Employed ED ROS ENT - Review of Systems Review Of Systems: ROS reveals no pertinent complaints other than HPI. ED EXAM, ENT - Physical Exam Exam: See Below Exam Limited By: No Limitations General Appearance: Alert, WD/WN, No Apparent Distress Eye Exam: Bilateral Eye: Normal Inspection Ears: Normal External Exam, Normal Canal, Hearing Grossly Normal, Normal TMs Nose: Normal Inspection, Normal Mucousa, No Blood Mouth/Throat: Other (dental caries at right maxillary molar with no gum swelling or visible abscess...) Head: Atraumatic, Normocephalic Neck: Normal Inspection, Supple, Non-Tender, Full Range of Motion Respiratory/Chest: No Respiratory Distress Neurological: Alert, Oriented, CN II-XII Intact, Normal Cognition, Normal Gait, Normal Reflexes, No Motor/Sensory Deficits Psychiatric: Normal Affect, Normal Mood Skin: Warm, Dry, Intact, Normal Color, No Rash Lymphatic: No Adenopathy Course - Vital Signs Last Recorded V/S: Last Vital Signs Temp 37.7 C 12/23/17 16:55 Pulse 81 12/23/17 16:55 Resp 20 12/23/17 16:55 BP 141/94 H 12/23/17 16:55 Pulse Ox 100 12/23/17 16:55 Departure - Departure Time of Disposition: 17:40 Disposition: Home, Self-Care 01 Condition: Good Clinical Impression: Toothache, Dental caries - Discharge Information Instructions: Dental Caries, [id number] Referrals: Hai Sebastian [Primary Care Provider] - Forms: ED Department Discharge Additional Instructions: RX: Viscous lidocaine 2%gel. RX: Tylenol #3. (*do not drive while under the influence of this medications) Follow up with Tammy Villedareneiliana to see if she will clear her for dental treatment. I have read and agree with the documentation that has been completed regarding this visit. By signing this record, I attest that the documentation was completed in my physical presence and is an accurate record of the encounter.
== END 2017-12-23 17:57 | disposition home or self-care (01) ==
LOC: DL.ED 16:50
DX: O99.612 Diseases of the digestive system complicating pregnancy, second trimester (principal); K02.9 Dental caries, unspecified; O99.412 Diseases of the circulatory system complicating pregnancy, second trimester; I10 Essential (primary) hypertension; Z88.2 Allergy status to sulfonamides; Z88.5 Allergy status to narcotic agent; Z88.8 Allergy status to other drugs, medicaments and biological substances; Z87.891 Personal history of nicotine dependence; Z3A.18 18 weeks gestation of pregnancy
CPT/HCPCS: 99282

== ENCOUNTER 2017-12-28 18:07 | Emergency (ER) | payer SELFPAY ==
[2017-12-28] MEDS ORDERED: Labetalol 100 MG Tab PO ONE ×2 (18:08→23:25)
[2017-12-28] MEDS ORDERED: Sodium Chloride 0.9% 1,000 ML IV ONE (21:36)
[2017-12-28] MEDS ORDERED: Sodium Chloride 0.9% 10 ML Syringe FLUSH PRN (21:36)
[2017-12-28 22:16] LABS: CHLORIDE,CL 103 mmol/L (101-111); SODIUM,NA 134 mmol/L (135-145)
[2017-12-28] MEDS ORDERED: Acetaminophen 325 MG Tab PO ONE (23:24)
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
[2017-12-28] MEDS ORDERED: Labetalol 100 MG Tab ONE (23:31)
[2017-12-28 23:45] VITALS: BP 128/81
== END 2017-12-28 23:50 | disposition home or self-care (01) ==
LOC: DL.ED 18:07
DX: O10.912 Unspecified pre-existing hypertension complicating pregnancy, second trimester (principal); Z3A.16 16 weeks gestation of pregnancy; Z88.2 Allergy status to sulfonamides; Z88.8 Allergy status to other drugs, medicaments and biological substances; Z88.5 Allergy status to narcotic agent; Z79.899 Other long term (current) drug therapy
CPT/HCPCS: 36415; 80053; 81001; 84550; 85025; 96360; 99283; A9270; J7030; J7050; 99284

== ENCOUNTER 2017-12-29 13:41 | Emergency (ER) | payer SELFPAY ==
[2017-12-29 13:48] VITALS: BP 154/95
[2017-12-29] MEDS ORDERED: Sodium Chloride 0.9% 1,000 ML IV ONE (14:00)
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
[2017-12-29] MEDS ORDERED: Promethazine 25 MG Tab PO ONE (14:12)
[2017-12-29 14:44] LABS: CHLORIDE,CL 105 mmol/L (101-111); SODIUM,NA 133 mmol/L (135-145)
== END 2017-12-29 16:01 | disposition home or self-care (01) ==
LOC: DL.ED 13:41
DX: O21.9 Vomiting of pregnancy, unspecified (principal); O10.912 Unspecified pre-existing hypertension complicating pregnancy, second trimester; O09.512 Supervision of elderly primigravida, second trimester; Z87.891 Personal history of nicotine dependence; Z79.899 Other long term (current) drug therapy; Z88.5 Allergy status to narcotic agent; Z88.2 Allergy status to sulfonamides; Z88.8 Allergy status to other drugs, medicaments and biological substances; Z3A.16 16 weeks gestation of pregnancy
CPT/HCPCS: 36415; 80053; 80305; 81001; 84702; 85025; 96360; 99283; A9270; J7030; 99284

== ENCOUNTER 2022-07-06 15:13 | Emergency (ER) | payer MEDICAID ==
[2022-07-06 15:13] VITALS: BP 155/101; PULSE 75
[2022-07-06] MEDS ORDERED: Sodium Chloride 0.9% 10 ML Syringe FLUSH PRN (15:16)
[2022-07-06] MEDS ORDERED: GI Cocktail Oral Solution 30 ML PO ONE (15:17)
[2022-07-06 16:02] LABS: AMPHETAMINES,URINE NEGATIVE (NEGATIVE); BARBITURATES,URINE NEGATIVE (NEGATIVE); BENZODIAZEPINE,URINE NEGATIVE (NEGATIVE); MDMA (ECSTASY), URINE NEGATIVE (NEGATIVE); METHADONE,URINE NEGATIVE (NEGATIVE); METHAMPHETAMINES,URINE NEGATIVE (NEGATIVE); OPIATES,URINE NEGATIVE (NEGATIVE); OXYCODONE,URINE NEGATIVE (NEGATIVE); PHENCYCLIDINE,URINE NEGATIVE (NEGATIVE); TCA,URINE NEGATIVE (NEGATIVE)
[2022-07-06 16:03] LABS: ANION GAP 14.7 mEq/L (7-13)
[2022-07-06 16:35] LABS: CORONAVIRUS COVID-19 NAA POSITIVE (NEGATIVE)
[2022-07-06] MEDS ORDERED: Acetaminophen 500 MG Tab PO ONE (16:41)
== END 2022-07-06 16:50 | disposition home or self-care (01) ==
LOC: DL.ED 15:13
DX: U07.1 COVID-19 (principal); R11.2 Nausea with vomiting, unspecified; I10 Essential (primary) hypertension; F17.210 Nicotine dependence, cigarettes, uncomplicated; Z88.8 Allergy status to other drugs, medicaments and biological substances; Z88.2 Allergy status to sulfonamides; Z88.5 Allergy status to narcotic agent
CPT/HCPCS: 0240U; 36415; 71045; 80053; 80305-QW; 81001; 81025; 82150; 83690; 84484; 85025; 93005; 93010; 99284; 99285; A9270-GY

== ENCOUNTER 2022-10-03 12:40 | Emergency (ER) | payer MEDICAID ==
[2022-10-03 13:07] VITALS: BP 147/93; PULSE 98
[2022-10-03] MEDS: Acetaminophen/HYDROcodone 325-10 MG Tab PO ONE (13:33)
== END 2022-10-03 14:07 | disposition home or self-care (01) ==
LOC: DL.ED 12:40
DX: S93.401A Sprain of unspecified ligament of right ankle, initial encounter (principal); L60.0 Ingrowing nail; Z88.2 Allergy status to sulfonamides; Z88.8 Allergy status to other drugs, medicaments and biological substances; W18.30XA Fall on same level, unspecified, initial encounter; Y92.000 Kitchen of unspecified non-institutional (private) residence as the place of occurrence of the external cause
CPT/HCPCS: 73610; 99283; A9270

== ENCOUNTER 2022-10-04 15:24 | Emergency (ER) | payer MEDICAID ==
[2022-10-04] MEDS ORDERED: Bacitracin Oint 1 GM U/D Packet TOP ONE (15:34)
[2022-10-04 15:37] VITALS: BP 126/98; PULSE 92
== END 2022-10-04 15:54 | disposition home or self-care (01) ==
LOC: DL.ED 15:24
DX: M79.671 Pain in right foot (principal); L60.0 Ingrowing nail; I10 Essential (primary) hypertension; Z88.2 Allergy status to sulfonamides; Z88.5 Allergy status to narcotic agent; Z88.8 Allergy status to other drugs, medicaments and biological substances
CPT/HCPCS: 99283

== ENCOUNTER 2023-04-05 10:47 | Emergency (ER) | payer MEDICAID ==
[2023-04-05 11:27] VITALS: PULSE 70
[2023-04-05] MEDS ORDERED: Take Home: Lidocaine 2% Viscous Solution 15 ML UD, 2 Cup Pack PO ONE (12:03)
[2023-04-05 12:14] VITALS: BP 138/82
== END 2023-04-05 12:12 | disposition home or self-care (01) ==
LOC: DL.ED 10:47
DX: K02.9 Dental caries, unspecified (principal); F17.210 Nicotine dependence, cigarettes, uncomplicated; Z86.16 Personal history of COVID-19; Z88.2 Allergy status to sulfonamides; Z88.5 Allergy status to narcotic agent; Z88.8 Allergy status to other drugs, medicaments and biological substances
CPT/HCPCS: 99282; A9270

== ENCOUNTER 2023-04-05 23:55 | Emergency (ER) | payer MEDICAID ==
[2023-04-06] MEDS ORDERED: Bupivacaine 0.25% 10 ML SDV INJECT ONE (00:42)
[2023-04-06] MEDS ORDERED: Amoxicillin/Clavulanate K 875-125 MG Tab PO ONE (00:42)
[2023-04-06] MEDS ORDERED: oxyCODONE ER 10 MG TAB.ER PO ONE (00:42)
[2023-04-06 02:19] VITALS: BP 158/88; PULSE 100
== END 2023-04-06 02:10 | disposition home or self-care (01) ==
LOC: DL.ED 23:55
DX: K04.7 Periapical abscess without sinus (principal); Z86.16 Personal history of COVID-19; Z88.2 Allergy status to sulfonamides; Z88.5 Allergy status to narcotic agent; Z88.8 Allergy status to other drugs, medicaments and biological substances
CPT/HCPCS: 64400; 99282; A9270; J3490

== ENCOUNTER 2023-04-27 14:26 | Emergency (ER) | payer MEDICAID ==
[2023-04-27 14:46] VITALS: BP 147/97; PULSE 78
[2023-04-27] MEDS ORDERED: Ketorolac 30 MG/ML SDV IM ONE (15:27)
== END 2023-04-27 15:55 | disposition home or self-care (01) ==
LOC: DL.ED 14:26
DX: M25.531 Pain in right wrist (principal); M79.631 Pain in right forearm; Z86.16 Personal history of COVID-19; Z88.8 Allergy status to other drugs, medicaments and biological substances; Z88.2 Allergy status to sulfonamides; Z88.5 Allergy status to narcotic agent
CPT/HCPCS: 73110; 96372; 99283; J1885

== ENCOUNTER 2024-06-19 17:44 | Emergency (ER) | payer SELFPAY ==
[2024-06-19] MEDS: Sodium Chloride 0.9% 10 ML Syringe FLUSH PRN (19:19)
[2024-06-19 19:26] LABS: BASOPHILS PERCENT AUTO 0.4 % (0.0-1.0); EOSINOPHILS PERCENT AUTO 0.4 % (1.0-3.0); HEMATOCRIT 30.2 % (37.0-47.0); LYMPHOCYTES PERCENT AUTO 9.8 % (20.5-50.1); MEAN CORPUSCULAR HEMOGLOBIN 23.4 pg (27.0-34.0); MEAN CORPUSCULAR HGB CONC 29.8 g/dL (33.0-35.0); MEAN CORPUSCULAR VOLUME 78.6 fL (80-100); MONOCYTES PERCENT AUTO 8.9 % (2-8); NEUTROPHILS PERCENT AUTO 80.5 % (42.2-75.2); PLATELET COUNT,PLT 372 10^3/uL (150-450); RED BLOOD CELL COUNT 3.84 10^6/uL (4.2-5.4); WHITE BLOOD CELL COUNT,WBC 9.1 10^3/uL (5.0-10.0)
[2024-06-19] MEDS: Ketorolac 30 MG/ML SDV IVPUSH ONE (19:29)
[2024-06-19] MEDS: Lidocaine 2% Viscous Solution 15 ML UD PO ONE (19:31)
[2024-06-19] MEDS: Amoxicillin/Clavulanate K 875-125 MG Tab PO ONE (19:43)
[2024-06-19 19:47] LABS: A/G RATIO 1.3; ALBUMIN 3.9 g/dL (3.4-5.0); ANION GAP 11.7 mEq/L (7-13); BILIRUBIN TOTAL 0.5 mg/dL (0.2-1.0); BUN/CREATININE RATIO 11.9 (No establ ref range); CREATININE 0.84 mg/dL (0.55-1.02); EST CRCL DRUG DOSING (CG) 85.71 mL/min; POTASSIUM,K 3.7 mmol/L (3.5-5.1)
[2024-06-19] MEDS: Take Home: Acetaminophen/HYDROcodone 325-5 MG, 5 Tab Pack PO ONE (19:49)
[2024-06-19] MEDS: Take Home: Lidocaine 2% Viscous Solution 15 ML UD, 2 Cup Pack PO ONE (19:49)
[2024-06-19 20:22] VITALS: BP 142/98; PULSE 66
== END 2024-06-19 20:17 | disposition home or self-care (01) ==
LOC: DL.ED 17:44
DX: K02.9 Dental caries, unspecified (principal); F17.210 Nicotine dependence, cigarettes, uncomplicated; Z86.16 Personal history of COVID-19; Z90.49 Acquired absence of other specified parts of digestive tract; Z88.2 Allergy status to sulfonamides; Z88.5 Allergy status to narcotic agent
CPT/HCPCS: 36415; 80053; 85025; 96374; 99283; A9270; J1885; J3490